=== PATIENT | male | born 1985 | race Two or more races ===

== ENCOUNTER 2018-08-31 09:24 | Emergency (ER) | payer SELFPAY ==
[~2018-08-31] VITALS: Ht 157.5 cm; Wt 68.0 kg
--- NOTE | 2018-08-31 09:25 | NUR ---
ED Nurse Note: Pt came from home w/ complaints of abdominal pain x 2 hours. Pt denies having n,v,d. Pt is rating the pain a 10/10. Non radiating. Pt is A + O x4. Ambulatory. Skin warm to touch.
[2018-08-31 09:29] VITALS: BP 113/91
[2018-08-31] MEDS ORDERED: Lidocaine 2% Visc 15ml soln ORAL ONE ×2 (10:00→13:15)
[2018-08-31] MEDS ORDERED: Mylanta II UD 30ml ORAL ONE ×2 (10:00→13:15)
--- NOTE | 2018-08-31 10:14 | NUR ---
ED Nurse Note: Xray at the bedside.
--- NOTE | 2018-08-31 10:26 | Diagnostic Imaging Report ---
Indication: Shortness of breath Technique: One view of the chest Comparison: none Findings: Lungs and pleural spaces are clear. Heart size is normal Impression: No acute process
[2018-08-31 10:35] LABS: ANION GAP 7 mmol/L (5-15); BLOOD UREA NITROGEN 13 mg/dL (7-18); CALCIUM 8.7 MG/DL (8.5-10.1); CARBON DIOXIDE 28 MMOL/L (21-32); CHLORIDE 103 MMOL/L (98-107); CREATININE 0.7 MG/DL (0.55-1.30); POTASSIUM 5.3 MMOL/L (3.5-5.1); SODIUM 138 MMOL/L (136-145)
[2018-08-31 10:39] LABS: HEMATOCRIT 42.4 % (42.0-52.0); HEMOGLOBIN 14.7 G/DL (14.2-18.0); MEAN CORPUSCULAR VOLUME 86 FL (80-99); PLATELET COUNT 224 K/UL (150-450); RED BLOOD COUNT 4.93 M/UL (4.70-6.10); RED CELL DISTRIBUTION WIDTH 11.7 % (11.6-14.8); WHITE BLOOD COUNT 10.6 K/UL (4.8-10.8)
[2018-08-31 10:41] LABS: ALANINE AMINOTRANSFERASE 158 U/L (12-78); ALBUMIN 3.7 G/DL (3.4-5.0); ALBUMIN/GLOBULIN RATIO 1.1 (1.0-2.7); ALKALINE PHOSPHATASE 104 U/L (46-116); ASPARTATE AMINO TRANSFERASE 174 U/L (15-37); BILIRUBIN,TOTAL 0.3 MG/DL (0.2-1.0); CREATINE KINASE 244 U/L (26-308)
--- NOTE | 2018-08-31 10:53 | NUR ---
ED Nurse Note: Notified Dr. Rahman of drug urine screen positive for amphethamines.
--- NOTE | 2018-08-31 10:59 | Emergency Room Report ---
History of Present Illness General Chief Complaint: Abdominal Pain Source: Patient Present Illness HPI Patient presents with severe epigastric pain. He denies any vomiting. States he's never had pain like this before. He's had abdominal surgery from an accident in the past. Denies constipation or diarrhea. He also denies melena.. Moving his bowels without difficulty The pain is severe and nonradiating. He denies any fevers or chills. There's no dysuria. It's epigastric and burning more than any other place in his abdomen. he has not taken any medication for this. The pain causes anxiety. He rates the pain 10/ 10. 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 Allergies: Coded Allergies: No Known Allergies (Unverified , 08/31/18) Patient History Past Medical History: see triage record Social History: Reports: smoking, drug use - See tox screen; Denies: alcohol use Social History Narrative Works in a restaurant Reviewed Nursing Documentation: PMH: Agreed; PSxH: Agreed Nursing Documentation-PMH Past Medical History: No Stated History Review of Systems All Other Systems: negative except mentioned in HPI Physical Exam Vital Signs Date Time Temp Pulse Resp B/P (MAP) Pulse Ox O2 Delivery O2 Flow Rate FiO2 08/31/18 09:21 97.5 90 18 112/74 100 Room Air 08/31/18 09:29 100 Sp02 EP Interpretation: reviewed, normal General Appearance: alert, moderate distress Head: normocephalic Eyes: bilateral eye normal inspection, bilateral eye PERRL, bilateral eye EOMI ENT: moist mucus membranes Neck: supple Respiratory: lungs clear, normal breath sounds Cardiovascular #1: regular rate, rhythm Cardiovascular #2: 2+ radial (R) Gastrointestinal: normal inspection, normal bowel sounds, no mass, non- distended, no guarding, no rebound, tenderness, other - Midline abdominal scar Genitourinary: no CVA tenderness Musculoskeletal: back normal, gait/station normal, normal range of motion Neurologic: alert, oriented x3, grossly normal Psychiatric: anxious Skin: normal inspection, warm/dry Medical Decision Making Diagnostic Impression: Primary Impression: Abdominal pain Qualified Codes: R10.13 - Epigastric pain Additional Impressions: Amphetamine abuse Drug-seeking behavior ER Course Patient presents with epigastric pain. Differential includes gastritis, gastroenteritis, GERD, pancreatitis, peptic ulcer disease amongst others. The patient will be evaluated with EKG chest x-ray abdominal film and labs. The patient will be treated with Pepcid and Mylanta and viscous lidocaine. EKG without injury. Chest x-ray no infiltrates. Abdominal film no obstruction. Labs with normal white count and hemoglobin. CMP remarkable for elevated liver function tests. Patient resting calmly. Still complaining about pain. Morphine administered as she is quite distressed. When confronted about positive tox screen the patient denies amphetamine use. Patient sleeping. When awakened asking for more morphine. Abdomen soft. Morphine repeated. Again patient sleeping after its ministration. Mylanta and viscous lidocaine also repeated. Patient again asking for morphine or Dilaudid by name. This suggest the majority with opiate use. Clinically he is improved. Discussed outpatient treatment plan. He still denies use of drugs. Patient stable for outpatient observation and treatment. Laboratory Tests Test 08/31/18 10:20 White Blood Count 10.6 K/UL (4.8-10.8) Red Blood Count 4.93 M/UL (4.70-6.10) Hemoglobin 14.7 G/DL (14.2-18.0) Hematocrit 42.4 % (42.0-52.0) Mean Corpuscular Volume 86 FL (80-99) Mean Corpuscular Hemoglobin 29.8 PG (27.0-31.0) Mean Corpuscular Hemoglobin Concent 34.6 G/DL (32.0-36.0) Red Cell Distribution Width 11.7 % (11.6-14.8) Platelet Count 224 K/UL (150-450) Mean Platelet Volume 8.6 FL (6.5-10.1) Neutrophils (%) (Auto) % (45.0-75.0) Lymphocytes (%) (Auto) % (20.0-45.0) Monocytes (%) (Auto) % (1.0-10.0) Eosinophils (%) (Auto) % (0.0-3.0) Basophils (%) (Auto) % (0.0-2.0) Differential Total Cells Counted 100 Neutrophils % (Manual) 85 % (45-75) H Lymphocytes % (Manual) 8 % (20-45) L Monocytes % (Manual) 5 % (1-10) Eosinophils % (Manual) 2 % (0-3) Basophils % (Manual) 0 % (0-2) Band Neutrophils 0 % (0-8) Platelet Estimate Adequate Platelet Morphology Normal Prothrombin Time 10.1 SEC (9.30-11.50) Prothrombin Time INR 1.0 (0.9-1.1) PTT 29 SEC (23-33) Sodium Level 138 MMOL/L (136-145) Potassium Level 5.3 MMOL/L (3.5-5.1) H Chloride Level 103 MMOL/L (98-107) Carbon Dioxide Level 28 MMOL/L (21-32) Anion Gap 7 mmol/L (5-15) Blood Urea Nitrogen 13 mg/dL (7-18) Creatinine 0.7 MG/DL (0.55-1.30) Estimate Glomerular Filtration Rate > 60 mL/min (>60) Glucose Level 83 MG/DL (74-106) Calcium Level 8.7 MG/DL (8.5-10.1) Total Bilirubin 0.3 MG/DL (0.2-1.0) Aspartate Amino Transferase (AST) 174 U/L (15-37) H Alanine Aminotransferase (ALT) 158 U/L (12-78) H Alkaline Phosphatase 104 U/L (46-116) Total Creatine Kinase 244 U/L (26-308) Troponin I 0.017 ng/mL (0.000-0.056) Total Protein 7.1 G/DL (6.4-8.2) Albumin 3.7 G/DL (3.4-5.0) Globulin 3.4 g/dL Albumin/Globulin Ratio 1.1 (1.0-2.7) Lipase 207 U/L (73-393) Urine Opiates Screen Negative (NEGATIVE) Urine Barbiturates Screen Negative (NEGATIVE) Phencyclidine (PCP) Screen Negative (NEGATIVE) Urine Amphetamines Screen Positive (NEGATIVE) H Urine Benzodiazepines Screen Negative (NEGATIVE) Urine Cocaine Screen Negative (NEGATIVE) Urine Marijuana (THC) Screen Negative (NEGATIVE) EKG Diagnostic Results Rate: normal Rhythm: NSR ST Segments: no acute changes Rhythm Strip Diag. Results EP Interpretation: yes Rhythm: NSR, no PVC's, no ectopy Chest X-Ray Diagnostic Results Chest X-Ray Diagnostic Results : Chest X-Ray Ordered: Yes # of Views/Limited/Complete: 1 View Indication: Other EP Interpretation: Yes Interpretation: no consolidation, no effusion, no pneumothorax Impression: No acute disease Electronically Signed by: Electronically signed by Renzo Rahman MD Other X-Ray Diagnostic Results Other X-Ray Diagnostic Results : X-Ray ordered: Abdomen # of Views/Limited Vs Complete: 2 View Indication: Pain EP Interpretation: Yes Interpretation: nonspecific bowel gas, no sbo, other - No masses Impression: No acute disease Electronically Signed by: Electronically signed by Renzo Rahman MD Last Vital Signs Date Time Temp Pulse Resp B/P (MAP) Pulse Ox O2 Delivery O2 Flow Rate FiO2 08/31/18 14:42 97.2 94 30 107/74 100 Room Air 08/31/18 13:30 100 Status: improved Disposition: HOME, SELF-CARE Condition: Improved Scripts Acetaminophen (Tylenol) 325 Mg Tablet 650 MG ORAL Q6H PRN for Prn Pain/Headache/Temp > 101, #20 TAB 0 Refills Prov: Renzo Rahman MD 08/31/18 Mag Hydrox/Al Hydrox/Simeth (MAALOX MAXIMUM STRENGTH SUSP) 355 Ml Oral.susp 30 ML PO Q6HR, #240 ML Prov: Renzo Rahman MD 08/31/18 Famotidine (PEPCID AC) 20 Mg Tablet 20 MG PO DAILY, #20 TAB Prov: Renzo Rahman MD 08/31/18 Renzo Rahman MD Aug 31, 2018 10:59
--- NOTE | 2018-08-31 11:07 | Diagnostic Imaging Report ---
Indication: Abdominal pain Technique: Supine view of the abdomen Comparison: none Findings: There is a single prominent small bowel loop in the left upper quadrant. Bowel gas pattern is otherwise unremarkable. No masses or unusual calcifications. There are degenerative proliferative changes of the mid lumbar spine Impression: Nonspecific prominent left upper quadrant small bowel loop, could represent a mild focal ileus. Otherwise unremarkable exam
[2018-08-31] MEDS ORDERED: Morphine Sulfate 4mg/ml Inj (IV USE ONLY) IVP ONE ×2 (11:30→13:15)
[2018-08-31 11:36] VITALS: BP 121/84
--- NOTE | 2018-08-31 11:40 | NUR ---
ED Nurse Note: Notified lab of urinalysis order.
[2018-08-31 13:30] VITALS: BP 102/57
[2018-08-31] MEDS ORDERED: PEPCID AC20 M2 PO (14:35)
[2018-08-31] MEDS ORDERED: TYLENOL325 MG ORAL (14:35)
[2018-08-31] MEDS ORDERED: MAALOX MAXIMUM355 M1 PO (14:35)
[2018-08-31 14:42] VITALS: BP 107/74
--- NOTE | 2018-08-31 14:43 | NUR ---
ER DISCHARGE NOTE: Patient is cleared to be discharged per ERMD, pt is aox4, on room air, with stable vital signs. pt was given dc and prescription instructions, pt was able to verbalize understanding, pt id band and iv site removed without complications. pt is able to ambulate with steady gait. pt took all belongings.
--- NOTE | 2018-09-04 15:55 | Cardiology Report ---
APPROVED REPORT EKG Measurement Heart [id number] Normal sinus rhythm with sinus arrhythmia Normal ECG
== END 2018-08-31 14:43 | disposition home or self-care (01) ==
LOC: EDBD 09:24 → EMR 10:15
DX: R10.13 Epigastric pain (principal); F15.10 Other stimulant abuse, uncomplicated; Z76.5 Malingerer [conscious simulation]; F41.9 Anxiety disorder, unspecified; F17.200 Nicotine dependence, unspecified, uncomplicated
CPT/HCPCS: 36415; 71045; 74018; 80053; 80307; 82550; 83690; 84484; 85007; 85025; 85610; 85730; 93005; 96361; 96374; 96375; 96376; 99284; J2270; J2405; S0028